=== PATIENT | female | born 1965 | race Hispanic/Latino ===

== ENCOUNTER 2017-09-25 08:56 | Emergency (ER) | payer SELFPAY ==
[2017-09-25] MEDS ORDERED: KETOROLAC TROMETHAMINE 60 MG/2 ML VIAL ONE (09:15)
[2017-09-25] MEDS ORDERED: LIDOCAINE HCL-MPF 1% 2ML VIAL ONE (09:15)
[2017-09-25] MEDS ORDERED: CEFTRIAXONE SODIUM 1 GM ONE (09:16)
[2017-09-25] MEDS ORDERED: HYDROCODONE/ACETAMINOPHEN 10/325 MG TAB ONE (09:16)
== END 2017-09-25 09:33 | disposition home or self-care (01) ==
LOC: EDH 08:56
DX: K04.7 Periapical abscess without sinus (principal); L03.211 Cellulitis of face
CPT/HCPCS: 96372 ×2; 99284; J0696; J1885; J3490

== ENCOUNTER 2018-12-06 23:44 | Emergency (ER) | payer OTHER ==
[2018-12-07 01:03] LABS: RAPID GROUP A STREP NEGATIVE (NEGATIVE)
[2018-12-07] MEDS ORDERED: DEXAMETHASONE SOD PHOSPHATE 10MG/ML 1ML VIAL ONE (01:29)
[2018-12-07] MEDS ORDERED: KETOROLAC TROMETHAMINE 60 MG/2 ML VIAL ONE (01:29)
== END 2018-12-07 01:49 | disposition home or self-care (01) ==
LOC: EDH 23:44
DX: J02.9 Acute pharyngitis, unspecified (principal)
CPT/HCPCS: 87804 ×2; 87880; 96372 ×2; 99284; J1100; J1885